=== PATIENT | female | born 1970 | race Caucasian/White ===

== ENCOUNTER 2017-06-09 20:57 | Emergency (ER) | payer BC ==
[2017-06-09 21:08] VITALS: BP 105/75
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
[2017-06-09] MEDS ORDERED: Cephalexin CAP* 500 MG PO ONE (21:21)
[2017-06-09] MEDS ORDERED: Phenazopyridine TAB* 100 MG PO ONE (21:22)
== END 2017-06-09 21:32 | disposition home or self-care (01) ==
LOC: UCCORT 20:57
DX: N39.0 Urinary tract infection, site not specified (principal); Z88.5 Allergy status to narcotic agent
CPT/HCPCS: 81003; 87077; 87086; 87186; 99212; A9270-GY; G0463

== ENCOUNTER 2017-08-19 16:10 | Emergency (ER) | payer BC ==
[2017-08-19 18:59] VITALS: BP 113/75
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
== END 2017-08-19 19:36 | disposition home or self-care (01) ==
LOC: UCCORT 16:10
DX: J02.9 Acute pharyngitis, unspecified (principal); H74.8X3 Other specified disorders of middle ear and mastoid, bilateral; Z88.5 Allergy status to narcotic agent
CPT/HCPCS: 87651; 99212; G0463

== ENCOUNTER 2017-12-06 19:04 | Emergency (ER) | payer BC, OTHER ==
[2017-12-06 19:20] VITALS: BP 110/69
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
[2017-12-06] MEDS ORDERED: Ipratropium 0.5MG/2.5ML NEB* 0.5 MG/2.5 ML NEB.SOLN INH ONE (19:39)
[2017-12-06] MEDS ORDERED: Albuterol 2.5 MG/3 ML NEB.SOL* (0.083%) INH ONE (19:39)
--- NOTE | 2017-12-06 19:49 | RAD ---
INDICATION: Cough. Bronchitis. COMPARISON: No relevant prior exams available on the [facility] PACS for comparison. TECHNIQUE: Dual energy PA and routine lateral views of the chest were obtained. REPORT: Clear lungs and pleural spaces. Negative for pneumothorax. The heart, pulmonary vasculature, and mediastinal contours are unremarkable. Unremarkable osseous structures and soft tissue contours. IMPRESSION: No evidence for acute intrathoracic disease.
[2017-12-06] MEDS ORDERED: Albuterol HFA INHALER* 8 gm MDI INH ONE (20:22)
== END 2017-12-06 20:35 | disposition home or self-care (01) ==
LOC: UCCORT 19:04
DX: J20.9 Acute bronchitis, unspecified (principal); Z88.5 Allergy status to narcotic agent
CPT/HCPCS: 71046; 99213; A9270-GY; G0463

== ENCOUNTER 2019-03-27 21:41 | Emergency (ER) | payer BC, OTHER ==
[2019-03-27 21:53] VITALS: BP 103/73
[2019-03-27] MEDS ORDERED: Sulfamethox/Trimethoprim DS 800/160* TAB PO ONE (21:59)
[2019-03-27] MEDS ORDERED: Phenazopyridine TAB* 100 MG PO ONE (21:59)
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
== END 2019-03-27 22:10 | disposition home or self-care (01) ==
LOC: UCCORT 21:41
DX: N39.0 Urinary tract infection, site not specified (principal); B96.20 Unspecified Escherichia coli [E. coli] as the cause of diseases classified elsewhere
CPT/HCPCS: 81003; 87077; 87086; 87186; 99212; A9270-GY; G0463